=== PATIENT | male | born 1945 | race African-American/Black ===

== ENCOUNTER 2017-02-26 09:11 | Emergency (ER) | payer MEDICAID ==
[~2017-02-26] VITALS: Ht 170.2 cm; Wt 76.0 kg
[~2017-02-26 09:11] MED LIST: AMLO10TA80 PO; HYDR25TA PO; UNKNOWN ANTIBIOTIC
[2017-02-26 10:24] LABS: EOSINOPHILS % 5.2 % (0.0-5.0); HEMOGLOBIN. 19.6 g/dL (14.0-18.0); LYMPHOCYTES % 16.2 % (20.0-50.0); MEAN CORPUSCULAR HEMOGLOBIN 25.9 pg (28.0-32.0); NEUTROPHILS % 70.6 % (40.0-76.0); RED BLOOD CELL COUNT 7.57 mill/uL (4.7-6.1); RED CELL DISTRIBUTION WIDTH 17.6 % (11.6-14.6)
[2017-02-26 10:32] LABS: CHLORIDE 101 mEq/L (98-107); INR 1.3; PARTIAL THROMBOPLASTIN TIME 33.3 sec (24.0-34.0); PROTHROMBIN TIME 13.9 sec
[2017-02-26 10:37] LABS: HEMATOCRIT. 61.4 % (42.0-52.0)
[2017-02-26 10:42] LABS: CARBON DIOXIDE 23 mEq/L (21-32); CREATINE KINASE 50 IU/L (39-308); CREATINE KINASE MB FRACTION 0.6 ng/mL (0.5-3.6); PHOSPHORUS 3.6 mg/dL (2.5-4.9); TROPONIN I 0.08 ng/mL (0.00-0.04)
[2017-02-26 10:50] LABS: PLATELET 310 x1000/uL (130-400)
[2017-02-26] MEDS ORDERED: SODIUM CHLORIDE 0.9% 500 ML IV ONE (10:53)
[2017-02-26 12:00] VITALS: BP 130/70
== END 2017-02-26 12:38 | disposition home or self-care (01) ==
LOC: ER 10:02
DX: I10 Essential (primary) hypertension (principal); D75.1 Secondary polycythemia; Z87.442 Personal history of urinary calculi
CPT/HCPCS: 36415; 71010; 80053; 82550; 82553; 83690; 83735; 84100; 84443; 84484; 85025; 85610; 85730; 93005; 99285; J7040; Z7610